=== PATIENT | female | born 1990 | race Caucasian/White ===

== ENCOUNTER 2016-11-17 19:33 | Emergency (ER) | payer MEDICAID ==
[~2016-11-17] VITALS: Ht 147.3 cm; Wt 61.8 kg
[~2016-11-17 19:33] MED LIST: B-12; CALC-68 PO; CHOL200018 PO; FERR-54 PO; IBP200T PO; METH1ADH5 TP; ONDAN4ODT PO; ONDN4T PO; PREN1TAB79 PO; PRM25T PO; ST JOHN S WORT; VITE; ZINC50TA54 PO; [UNRECOGNIZED DRUG - OTHER]
--- OUTSIDE RECORDS SUMMARY | 2016-11-17 19:42 | XMS REPORT | Continuity of Care Document ---
Author Author [facility] Organization [facility] Address Unknown Phone Unavailable Care Team Providers Care Technical Testing Engineer Name Role Phone Lemuel, Kevin PCP [phone] Source Comments Some departments are not documenting in the electronic medical record. If you do not see the information that you expected, contact Release of Information in the Health Information Management department at [phone] for further assistance in locating additional records.[facility] Active Allergies and Adverse Reactions No Known Allergies Current Medications Prescription Sig. Disp. Refills Start End Date Status Date metFORMIN (GLUCOPHAGE) Take 1,000 mg by mouth Active 500 mg tablet daily. melatonin 3 mg tab Take 3 mg by mouth at Active bedtime daily. Active Problems Problem Noted Date PTSD (post-traumatic stress disorder) 07/19/2014 Depression 07/19/2014 Anxiety 07/19/2014 Functional neurological symptom disorder with weakness or paralysis 2013 Social History Tobacco Use Types Packs/Day Years Used Date Current Every Day Smoker Cigarettes 0.25 Last Filed Vital Signs Vital Sign Reading Time Taken Blood Pressure 125/90 07/15/2014 3:04 PM CDT Pulse 69 07/15/2014 3:04 PM CDT Temperature 36.6 C (97.9 F) 07/15/2014 3:04 PM CDT Respiratory Rate - - Height 1.448 m (4' 9") 07/12/2014 4:25 PM CDT Weight 64.003 kg (141 lb 1.6 oz) 07/15/2014 3:57 AM CDT Body Mass Index 30.53 07/15/2014 3:57 AM CDT Oxygen Saturation 100% 07/15/2014 3:04 PM CDT Plan of Care Health Maintenance Due Date Last Done Comments Physical (Comprehensive) 1999 Exam Hpv Vaccines (#1) 2003 Pertussis Vaccine 2003 Tetanus Vaccine 2009 Cervical Cancer Screening 2013 Influenza Vaccine 06/30/2016 Results from Last 3 Months Not on file
[2016-11-17 20:38] LABS: BASOPHILS % (AUTO) 0 % (0-2); EOSINOPHILS % (AUTO) 0 % (0-4); MEAN CORPUSCULAR HEMOGLOBIN 29.5 PG (26.0-34.0); MEAN CORPUSCULAR HGB CONC 34.9 g/dL (31.0-37.0); MEAN CORPUSCULAR VOLUME 85 FL (80-100); MEAN PLATELET VOLUME 11.6 FL (6.0-9.5); MONOCYTES # (AUTO) 0.4 X10^3; MONOCYTES % (AUTO) 5 % (3-11); NEUTROPHILS # (AUTO) 4.8 X10^3; NEUTROPHILS % (AUTO) 66 % (51-67); PLATELET COUNT 216 10^3uL (150-450); WHITE BLOOD COUNT 7.19 10^3uL (4.0-11.0)
[2016-11-17 20:39] LABS: ANION GAP 14.3 MEQ/L (3-15)
--- NOTE | 2016-11-17 20:51 | NUR ---
CHECKED ON PT AND SHE DENIES ANY NEEDS AT THIS TIME. TOOK OVER CARE OF PT.
[2016-11-17 21:17] LABS: BILIRUBIN,URINE Negative (Negative); COLOR,URINE Yellow; GLUCOSE, URINE (UA) Negative (Negative); LEUKOCYTE ESTERASE ,URINE Negative (Negative); PH,URINE 6.5 (5.0 - 8.0); UROBILINOGEN,URINE 0.2 mg/dL (0.2-1.0)
[2016-11-17 21:20] LABS: CLARITY,URINE Slightly Cloudy
[2016-11-17 21:21] LABS: URINE CENTRIFUGED VOLUME 12 mL
[2016-11-17] MEDS ORDERED: ONDA4TAB8 PO (21:39)
[2016-11-17 21:56] VITALS: BP 118/67
== END 2016-11-17 21:50 | disposition home or self-care (01) ==
LOC: ED 19:35
DX: O26.851 Spotting complicating pregnancy, first trimester (principal); Z3A.10 10 weeks gestation of pregnancy
CPT/HCPCS: 36415; 80048; 81003; 81015; 85025; 99282; 99283

== ENCOUNTER 2016-12-10 22:15 | Emergency (ER) | payer MEDICAID ==
[~2016-12-10] VITALS: Ht 147.3 cm; Wt 59.7 kg
[2016-12-10 22:59] LABS: BASOPHILS % (AUTO) 0 % (0-2); EOSINOPHILS % (AUTO) 1 % (0-4); LYMPHOCYTES # (AUTO) 2.3 X10^3; MEAN CORPUSCULAR HEMOGLOBIN 30.1 PG (26.0-34.0); MEAN CORPUSCULAR HGB CONC 35.4 g/dL (31.0-37.0); MEAN CORPUSCULAR VOLUME 85 FL (80-100); MEAN PLATELET VOLUME 11.7 FL (6.0-9.5); MONOCYTES # (AUTO) 0.3 X10^3; MONOCYTES % (AUTO) 4 % (3-11); NEUTROPHILS # (AUTO) 4.4 X10^3; NEUTROPHILS % (AUTO) 62 % (51-67); PLATELET COUNT 191 10^3uL (150-450); WHITE BLOOD COUNT 7.13 10^3uL (4.0-11.0)
[2016-12-10 23:07] LABS: ANION GAP 13.6 MEQ/L (3-15)
[2016-12-10 23:10] LABS: BILIRUBIN,URINE Negative (Negative); COLOR,URINE Yellow; GLUCOSE, URINE (UA) Negative (Negative); LEUKOCYTE ESTERASE ,URINE Negative (Negative); UROBILINOGEN,URINE 0.2 mg/dL (0.2-1.0)
[2016-12-10 23:11] LABS: CLARITY,URINE Slightly Cloudy
[2016-12-10 23:38] LABS: RBC,URINE 0-2 /HPF; URINE CENTRIFUGED VOLUME 12 mL
--- NOTE | 2016-12-11 00:20 | NUR ---
RESTING IN BED DENIES AND DISCOMFORT AT THIS TIME
[2016-12-11 00:34] VITALS: BP 112/80
== END 2016-12-11 00:36 | disposition home or self-care (01) ==
LOC: ED 22:17
DX: O20.9 Hemorrhage in early pregnancy, unspecified (principal); Z3A.13 13 weeks gestation of pregnancy
CPT/HCPCS: 36415; 80048; 81003; 81015; 84702; 85025; 99282; 99283

== ENCOUNTER 2017-02-14 21:49 | Outpatient (CLI) | payer MEDICAID ==
[~2017-02-14] VITALS: Ht 147.3 cm; Wt 62.0 kg
[~2017-02-14 21:49] MED LIST changes: +ONDA4TAB8 PO
[2017-02-14 22:08] VITALS: BP 104/58
== END 2017-02-14 22:35 ==
LOC: OBGOP 21:49 → OB 21:50 → OBGOP 22:35
PROVIDERS: ATTEND Family Medicine
DX: O47.03 False labor before 37 completed weeks of gestation, third trimester (principal); Z3A.23 23 weeks gestation of pregnancy
CPT/HCPCS: 99201

== ENCOUNTER 2017-03-25 17:29 | Emergency (ER) | payer MEDICAID ==
[~2017-03-25] VITALS: Ht 147.3 cm; Wt 81.0 kg
--- OUTSIDE RECORDS SUMMARY | 2017-03-25 17:33 | XMS REPORT | Continuity of Care Document ---
Author Author [facility] Organization [facility] Address Unknown Phone Unavailable Care Team Providers Care Mapping Supervisor Name Role Phone Lemuel, Kevin PCP [phone] Source Comments Some departments are not documenting in the electronic medical record. If you do not see the information that you expected, contact Release of Information in the Health Information Management department at [phone] for further assistance in locating additional records.[facility] Active Allergies and Adverse Reactions No [...] 2009 Cervical Cancer Screening 2013 Influenza Vaccine 06/30/2017 Results from Last 3 Months Not on file
--- OUTSIDE RECORDS SUMMARY | 2017-03-25 17:35 | XMS REPORT | Continuity of Care Document ---
Author Author [facility] Organization [facility] Address Unknown Phone Unavailable Care Team Providers Care Dental Chair Assembler Name Role Phone Lemuel, Kevin PCP [phone] Source Comments Some departments are not documenting in the electronic medical record. If you do not see the information that you expected, contact Release of Information in the Health Information Management department at [phone] for further assistance in locating additional records.[facility] Active Allergies and Adverse Reactions No [...]
[2017-03-25] MEDS ORDERED: CITA20TA12 PO (17:42)
[2017-03-25] MEDS ORDERED: HYDROCORTISONE RIGHT EAR ONE (19:20)
[2017-03-25] MEDS ORDERED: [UNRECOGNIZED DRUG - OTHER] RIGHT EAR ONE (19:20)
[2017-03-25] MEDS ORDERED: POLYMYXIN RIGHT EAR ONE (19:20)
--- NOTE | 2017-03-25 19:31 | NUR ---
[facility] OB CONTACTED FOR DR ABARCA.
[2017-03-25] MEDS ORDERED: ED- HYDROcodone/ACETAMINOPHEN 5MG/325MG (NORCO) 6 TABLETS/BTL PO ONE (19:50)
[2017-03-25] MEDS ORDERED: NEOM10DR9 RIGHT EAR (19:52)
[2017-03-25] MEDS ORDERED: HYDR-3702 PO (19:52)
[2017-03-25 20:09] VITALS: BP 126/51
== END 2017-03-25 20:05 | disposition home or self-care (01) ==
LOC: ED 17:31
DX: H60.91 Unspecified otitis externa, right ear (principal)
CPT/HCPCS: 99283; A9270; 99282